=== PATIENT | female | born 1955 | race Caucasian/White ===

== ENCOUNTER 2018-12-10 16:02 | Emergency (ER) | payer MEDICAID ==
[2018-12-10] MEDS ORDERED: METHYLPREDNISOLONE INJ 125 MG/2 ML SDV IV ONE (17:17)
[2018-12-10] MEDS ORDERED: IPRATROPIUM/ALBUTEROL 0.5-2.5 MG/3 ML AMPUL NEB ONE (17:17)
--- NOTE | 2018-12-10 17:17 | ER Document Report ---
ED Medical Screen (RME) - General Chief Complaint: Shortness Of Breath Stated Complaint: MEDICATION REFILL Time Seen by Provider: 12/10/18 17:05 Notes: Patient is a 63-year-old female with COPD and hypertension that presents to the emergency department for chief complaint of shortness of breath and cough and out of her medications. Patient reports moving here 2 weeks ago thinking that she could get her medications transferred over from [place], however that is not the case, she is run out of all of her medications yesterday, she is on multiple medications she also reports having cough and shortness of breath most recently. ROS: Other than noted above, the 12 point review of systems was reviewed with the patient and were negative, all pertinent findings are included in the HPI. PHYSICAL EXAMINATION: Vital signs reviewed. GENERAL: Elderly female, mild increased work of breathing HEAD: Atraumatic, normocephalic. EYES: Pupils equal round extraocular movements intact, conjunctiva are normal. ENT: Nares patent NECK: Normal range of motion CV: Heart regular rate and rhythm LUNGS: Increased work of breathing, cough, expiratory wheezing noted Musculoskeletal: Normal range of motion NEUROLOGICAL: Normal speech PSYCH: Normal mood, normal affect. MDM: Patient seen and examined for rapid initial assessment. Vital signs reviewed. A comprehensive ED assessment and evaluation of the patient, analysis of test results and completion of the medical decision making process will be conducted by additional ED providers. *Note is created using voice recognition software and may contain spelling, syntax or grammatical errors. - Related Data Allergies/Adverse Reactions: iodine Allergy (Verified 12/10/18 17:09) Past Medical History - Social History Chew tobacco use (# tins/day): No Frequency of alcohol use: None Drug Abuse: None - Past Medical History Cardiac Medical History: Reports: Hx Congestive Heart Failure, Hx Heart Attack, Hx Hypercholesterolemia, Hx Hypertension Pulmonary Medical History: Reports: Hx Asthma, Hx COPD Neurological Medical History: Reports: Hx Seizures Renal/ Medical History: Denies: Hx Peritoneal Dialysis Past Surgical History: Reports: Hx Breast Surgery, Hx Section, Hx Cholecystectomy, Hx Orthopedic SurgeryComment Only: Hx Oral Surgery - wrist Physical Exam - Vital signs Vitals: Temp Pulse Resp BP Pulse Ox 98 F 81 24 H 144/59 H 97 12/10/18 16:13 12/10/18 16:13 12/10/18 16:13 12/10/18 16:13 12/10/18 16:13 Course - Vital Signs Vital signs: Temp Pulse Resp BP Pulse Ox 98 F 81 24 H 144/59 H 97 12/10/18 16:13 12/10/18 16:13 12/10/18 16:13 12/10/18 16:13 12/10/18 16:13
--- NOTE | 2018-12-10 17:52 | RADIOLOGY REPORT (SQ) ---
EXAM DESCRIPTION: CHEST SINGLE VIEW COMPLETED DATE/TIME: 12/10/2018 5:37 pm REASON FOR STUDY: shortness of breath COMPARISON: None. NUMBER OF VIEWS: One view. TECHNIQUE: Single frontal radiographic view of the chest acquired. LIMITATIONS: None. FINDINGS: LUNGS AND PLEURA: Mild interstitial changes. No consolidation, pneumothorax or effusion. MEDIASTINUM AND HILAR STRUCTURES: No masses. Contour normal. HEART AND VASCULAR STRUCTURES: Heart normal in size. Normal vasculature. BONES: No acute findings. HARDWARE: None in the chest. OTHER: No other significant finding. IMPRESSION: Mild interstitial changes. No consolidation, pneumothorax or effusion. TECHNICAL DOCUMENTATION: JOB ID: [id number] [place]-72 2010 [employer]- All Rights Reserved Reading location - IP/workstation name: Unique Property
[2018-12-10 18:48] LABS: ABSOLUTE EOSINOPHILS # (AUTO) 0.3 10^3/uL (0.0-0.6); ABSOLUTE LYMPHOCYTES (AUTO) 2.1 10^3/uL (0.5-4.7); ABSOLUTE MONOCYTES (AUTO) 0.6 10^3/uL (0.1-1.4); ABSOLUTE NEUT (AUTO) 4.6 10^3/uL (1.7-8.2); BASOPHILS % (AUTO) 0.2 % (0-2); EOSINOPHILS % (AUTO) 4.2 % (0-6); HEMATOCRIT 36.8 % (36.0-47.0); HEMOGLOBIN 12.5 g/dL (12.0-15.5); LYMPHOCYTES % (AUTO) 27.2 % (13-45); MEAN CORPUSCULAR HEMOGLOBIN 29.3 pg (27.0-33.4); MEAN CORPUSCULAR HGB CONC 33.9 g/dL (32.0-36.0); MEAN CORPUSCULAR VOLUME 87 fl (80-97); MONOCYTES % (AUTO) 7.6 % (3-13); PLATELET COUNT 335 10^3/uL (150-450); RED BLOOD COUNT 4.26 10^6/uL (3.72-5.28); SEGMENTED NEUTROPHILS % (AUTO) 60.8 % (42-78); TOTAL CELLS COUNTED % (AUTO) 100 %; WHITE BLOOD COUNT 7.6 10^3/uL (4.0-10.5)
[2018-12-10 19:06] LABS: ALANINE AMINOTRANSFERASE 25 U/L (9-52); ALBUMIN 3.9 g/dL (3.5-5.0); ALKALINE PHOSPHATASE 111 U/L (38-126); ANION GAP 11 (5-19); ASPARTATE AMINO TRANSFERASE 36 U/L (14-36); BILIRUBIN,DIRECT 0.4 mg/dL (0.0-0.4); BILIRUBIN,TOTAL 0.5 mg/dL (0.2-1.3); BLOOD UREA NITROGEN 12 mg/dL (7-20); CALCIUM 9.3 mg/dL (8.4-10.2); CARBON DIOXIDE 28 mmol/L (22-30); CHLORIDE 102 mmol/L (98-107); GLUCOSE 91 mg/dL (75-110); POTASSIUM 3.8 mmol/L (3.6-5.0); SODIUM 140.9 mmol/L (137-145)
[2018-12-10] MEDS ORDERED: ALBUTEROL SULFATE HFA (90 MCG/PUFF) 8 GM MDI (1 MDI/ER DISP) IH PRN (19:24)
--- NOTE | 2018-12-10 19:33 | ER Document Report ---
ED General - General Chief Complaint: Shortness Of Breath Stated Complaint: MEDICATION REFILL Time Seen by Provider: 12/10/18 17:05 Primary Care Provider: [facility] [Provider Group] - Follow up as needed (This is a number of a free clinic affiliated with the [facility].) RONAL WRAE MD [ACTIVE STAFF] - Follow up as needed (This is the number of a primary care doctor affiliated with the [facility].) Mode of Arrival: Ambulatory Information source: Patient Notes: This is 63-year-old woman with a history of COPD, CHF, hypertension who presents to the emergency room with wheezing and shortness of breath in the setting of running out of her medicines. Patient recently came up here from [facility]. She denies chest pain. She was given a nebulizer and feels better. - HPI Onset: Last week Onset/Duration: Gradual Quality of pain: No pain Severity: None Pain Level: Denies Associated symptoms: denies: Chills, Fever Exacerbated by: Denies Relieved by: Denies Similar symptoms previously: Yes Recently seen / treated by doctor: No - Related Data Allergies/Adverse Reactions: iodine Allergy (Verified 12/10/18 17:09) Past Medical History - General Information source: Patient - Social History Smoking Status: Current Every Day Smoker Cigarette use (# per day): Yes - Half pack per day Chew tobacco use (# tins/day): No Frequency of alcohol use: None Drug Abuse: None Lives with: Family Family History: None Patient has suicidal ideation: No Patient has homicidal ideation: No - Past Medical History Cardiac Medical History: Reports: Hx Congestive Heart Failure, Hx Heart Attack, Hx Hypercholesterolemia, Hx Hypertension Pulmonary Medical History: Reports: Hx Asthma, Hx COPD Neurological Medical History: Reports: Hx Seizures Renal/ Medical History: Denies: Hx Peritoneal Dialysis Past Surgical History: Reports: Hx Breast Surgery, Hx Section, Hx Cholecystectomy, Hx Orthopedic SurgeryComment Only: Hx Oral Surgery - wrist Review of Systems - Review of Systems Constitutional: denies: Chills, Fever EENT: No symptoms reported Cardiovascular: No symptoms reported Respiratory: See HPI Gastrointestinal: No symptoms reported Genitourinary: No symptoms reported Female Genitourinary: No symptoms reported Musculoskeletal: No symptoms reported Skin: No symptoms reported Hematologic/Lymphatic: No symptoms reported Neurological/Psychological: No symptoms reported Physical Exam - Vital signs Vitals: Temp Pulse Resp BP Pulse Ox 98 F 81 24 H 144/59 H 97 12/10/18 16:13 12/10/18 16:13 12/10/18 16:13 12/10/18 16:13 12/10/18 16:13 Notes: Physical exam: GENERAL: She is alert and oriented x3, no acute distress. HEAD: Atraumatic, normocephalic. EYES: Pupils equal round and reactive to light, extraocular movements intact, sclera anicteric, conjunctiva are normal. ENT: TMs normal, nares patent, oropharynx clear without exudates. Moist mucous membranes. NECK: Normal range of motion, supple without obvious mass or JVD. LUNGS: Breath sounds clear to auscultation bilaterally and equal. No wheezes rales or rhonchi. HEART: Regular rate and rhythm without murmurs, rubs or gallops. ABDOMEN: Soft, normoactive bowel sounds. No tenderness to palpation. No guarding, no rebound. No masses appreciated. EXTREMITIES: Normal range of motion, no pitting or edema. No clubbing or cyanosis. NEUROLOGICAL: Cranial nerves II through XII grossly intact. Normal speech, moving all extremities. PSYCH: Normal mood, normal affect. SKIN: Warm, Dry, normal turgor, no rashes or lesions noted. Course - Vital Signs Vital signs: Temp Pulse Resp BP Pulse Ox 98.3 F 73 16 135/62 H 96 12/10/18 20:10 12/10/18 20:10 12/10/18 20:10 12/10/18 20:10 12/10/18 20:10 - Laboratory Result Diagrams: 12/10/18 18:25 12/10/18 18:25 Laboratory results interpreted by me: 12/10/18 18:25 RDW 15.0 H - Diagnostic Test Radiology reviewed: Image reviewed, Reports reviewed - Chest x-ray shows no infiltrates. - EKG Interpretation by Me Rate: Normal Rhythm: NSR - EKG shows normal sinus rhythm with a ventricular rate of 71, no acute ST-T wave changes Discharge - Discharge Clinical Impression: COPD Condition: Stable Disposition: HOME, SELF-CARE Additional Instructions: As we discussed, its important that you get into see a primary care physician. I put the number for Dr. Anastasia Devries who is a primary care doctor affiliated with the [facility]. Alternatively, but the number for the [facility]) on the discharge paperwork. Return to the emergency room for worsening shortness of breath. Prescriptions: Atorvastatin Calcium [Lipitor 40 mg Tablet] 40 mg PO QHS #30 tablet Ipratropium/Albuterol Sulfate [Combivent Inhaler] 14.7 gm IH Q8HP PRN #1 aer.w.adap PRN Reason: Albuterol Sulfate [Albuterol Sulfate 2mg Tablet] 2 mg PO TID #90 tablet Amlodipine Besylate [Norvasc 5 mg Tablet] 5 mg PO DAILY #30 tablet Beclomethasone Dipropionate [Qvar] 1 - 2 inh IH BID PRN #1 aer.w.adap PRN Reason: Furosemide [Lasix 40 mg Tablet] 40 mg PO BID #60 tablet Gabapentin [Neurontin 300 mg Capsule] 300 mg PO Q8 #90 cap Ibuprofen [Ibu] 800 mg PO BID PRN #30 tablet PRN Reason: Lisinopril [Prinivil 40 mg Tablet] 40 mg PO DAILY #30 tablet Omeprazole 20 mg PO ONCE PRN #30 tablet. PRRuba Reason: Referrals: RONAL WARE MD [ACTIVE STAFF] - Follow up as needed (This is the number of a primary care doctor affiliated with the hospital.) [facility] [Provider Group] - Follow up as needed (This is a number of a free clinic affiliated with the [facility].)
[2018-12-10 20:12] VITALS: BP 135/62
--- NOTE | 2018-12-10 21:22 | EKG REPORT ---
SEVERITY:- NORMAL ECG - SINUS RHYTHM : Confirmed by: Vero Lorenzo MD 10-Dec-2018 21:22:10
== END 2018-12-10 20:38 | disposition home or self-care (01) ==
LOC: ER 16:02
DX: J44.9 Chronic obstructive pulmonary disease, unspecified (principal); T50.906A Underdosing of unspecified drugs, medicaments and biological substances, initial encounter; Z91.128 Patient's intentional underdosing of medication regimen for other reason; Z91.14 Patient's other noncompliance with medication regimen; I10 Essential (primary) hypertension; R06.02 Shortness of breath; F17.210 Nicotine dependence, cigarettes, uncomplicated
CPT/HCPCS: 93005; 94640; 99285; 96374; 36415; 85025; 80053; 84484; 71045; 93010; J2930; J3490; J7620

== ENCOUNTER 2019-01-26 18:13 | Emergency (ER) | payer MEDICAID ==
--- NOTE | 2019-01-26 19:47 | ER Document Report ---
HPI - HPI Time Seen by Provider: 01/26/19 19:03 Pain Level: 4 Context: Patient is a 63-year-old female who presents the emergency department after falling at the entrance of [facility]. She states that she has back pain. She is able to walk, but has intact pain. She also states that she skinned up her left arm. She denies hitting her head. Denies any blood thinner use. - CONSTITUTIONAL Constitutional: DENIES: Fever, Chills - EENT EENT: DENIES: Sore Throat - NEURO Neurology: DENIES: Headache, Weakness - CARDIOVASCULAR Cardiovascular: DENIES: Chest pain - RESPIRATORY Respiratory: DENIES: Trouble Breathing, Coughing - GASTROINTESTINAL Gastrointestinal: DENIES: Abdominal Pain - MUSCULOSKELETAL Musculoskeletal: REPORTS: Extremity pain - Left elbow, Back Pain - Low - DERM Skin Color: Normal Skin Problems: Abrasion - Left elbow Past Medical History - General Information source: Patient - Social History Smoking Status: Unknown if Ever Smoked Family History: None - Past Medical History Cardiac Medical History: Reports: Hx Congestive Heart Failure, Hx Heart Attack, Hx Hypercholesterolemia, Hx Hypertension Pulmonary Medical History: Reports: Hx Asthma, Hx COPD Neurological Medical History: Reports: Hx Seizures Renal/ Medical History: Denies: Hx Peritoneal Dialysis Past Surgical History: Reports: Hx Breast Surgery, Hx Section, Hx Cholecystectomy, Hx Orthopedic SurgeryComment Only: Hx Oral Surgery - wrist Vertical Provider Document - CONSTITUTIONAL Agree With Documented VS: Yes Exam Limitations: No Limitations General Appearance: No Apparent Distress - INFECTION CONTROL TRAVEL OUTSIDE OF THE [place] IN LAST 30 DAYS: No - HEENT HEENT: Atraumatic, Normocephalic, PERRLA - NECK Neck: Normal Inspection - RESPIRATORY Respiratory: Breath Sounds Normal, No Respiratory Distress - CARDIOVASCULAR Cardiovascular: Regular Rate, Regular Rhythm Pulses: Normal: Radial - GI/ABDOMEN Gastrointestinal: Abdomen Soft - MUSCULOSKELETAL/EXTREMETIES Musculoskeletal/Extremeties: FROM, Tender, No Edema - Left elbow - NEURO Level of Consciousness: Awake, Alert, Appropriate Motor/Sensory: No Motor Deficit, No Sensory Deficit - DERM Integumentary: Warm, Dry Notes: Abrasion noted to left elbow Course - Re-evaluation Re-evalutation: 01/26/19 21:24 Patient's x-ray of the lumbar spine and left elbow are both negative for any acute fractures. She will be placed in a sling to help with her elbow pain. She will also follow-up with her primary care provider in regards to this visit. I have recommended physical therapy for the patient. She will take ibuprofen and Tylenol for her pain. She is in agreement with this plan. Verbal discharge instructions were given to the patient. They verbalized understanding. They are stable for discharge. - Vital Signs Vital signs: Temp Pulse Resp BP Pulse Ox 98.8 F 72 20 122/63 96 01/26/19 18:36 01/26/19 18:36 01/26/19 18:36 01/26/19 18:36 01/26/19 18:36 Procedures - Immobilization Left Elbow Pre-Proc Neuro Vasc Exam: Normal Immobilizer type: Sling Performed by: RN Post-Proc Neuro Vasc Exam: Normal, Unchanged from pre-exam Alignment checked and good: Yes Discharge - Discharge Clinical Impression: Left elbow pain Fall Qualifiers: Encounter type: initial encounter Qualified Code(s): W19.XXXA - Unspecified fall, initial encounter Low back pain Qualifiers: Chronicity: acute Back pain laterality: bilateral Sciatica presence: without sciatica Qualified Code(s): M54.5 - Low back pain Condition: Stable Disposition: HOME, SELF-CARE Additional Instructions: You are seen today in emergency department for a fall. Your x-rays are normal. You can continue taking Tylenol 1000 mg and ibuprofen 600 mg every 6 hours for your pain. Please follow-up with your primary care provider within the next week. If you continue to have pain, you may need x-rays. Please make sure you rest. Your gabapentin and albuterol were refilled here in the emergency department. Please take as prescribed. Prescriptions: Albuterol Sulfate [Albuterol Sulfate 2mg Tablet] 2 mg PO TID #90 tablet Gabapentin [Neurontin 300 mg Capsule] 300 mg PO Q8 #90 cap Referrals: ANN HUBER DO [Primary Care Provider] - Follow up in 3-5 days
[2019-01-26] MEDS ORDERED: ACETAMINOPHEN 325 MG TABLET PO ONE (19:49)
--- NOTE | 2019-01-26 21:10 | RADIOLOGY REPORT (SQ) ---
EXAM DESCRIPTION: XR ELBOW 3 VIEWS COMPLETED DATE/TME: 01/26/2019 19:48 CLINICAL HISTORY: 63 years ,Female fall, abrasions, pain COMPARISON: None. TECHNIQUE: LEFT elbow, four view FINDINGS: No acute fractures or dislocations are identified. No osseous destructive lesions. No evidence of joint effusion. IMPRESSION: No acute fractures are identified. If symptoms persist, followup is recommended in 7-10 days.
--- NOTE | 2019-01-26 21:12 | RADIOLOGY REPORT (SQ) ---
EXAM DESCRIPTION: XR LUMBAR SPINE ANTEROPOSTERIOR, LATERAL, AND OBLIQUES COMPLETED DATE/TME: 01/26/2019 19:48 CLINICAL HISTORY: 63 years ,Female fall back pain COMPARISON: None. TECHNIQUE: Five views FINDINGS: Narrowing of all of the lumbar disc interspaces with subchondral sclerosis and osteophytosis. Vascular calcification. Normal alignment lordosis. No acute fracture is noted. Vascular stent on the right. IMPRESSION: No acute fracture is identified. Moderate degenerative change
[2019-01-26 21:33] VITALS: BP 131/65
== END 2019-01-26 21:21 | disposition home or self-care (01) ==
LOC: ER 18:13
DX: S50.312A Abrasion of left elbow, initial encounter (principal); M54.5 Low back pain; M25.522 Pain in left elbow; W01.0XXA Fall on same level from slipping, tripping and stumbling without subsequent striking against object, initial encounter; Y92.512 Supermarket, store or market as the place of occurrence of the external cause; I10 Essential (primary) hypertension; J44.9 Chronic obstructive pulmonary disease, unspecified
CPT/HCPCS: 99283; 73080; 72110; J3490